=== PATIENT | male | born 1965 | race Caucasian/White ===

== ENCOUNTER 2022-02-10 09:24 | Emergency (ER) | payer BC ==
[~2022-02-10] VITALS: Ht 170.2 cm; Wt 120.5 kg
[2022-02-10 09:30] VITALS: TEMP 98.6
[2022-02-10 11:06] VITALS: BP 133/82; PULSE 65
== END 2022-02-10 11:10 | disposition home or self-care (01) ==
LOC: COL.ER 09:24
DX: S51.812A Laceration without foreign body of left forearm, initial encounter (principal); Z28.310 Unvaccinated for COVID-19; W01.198A Fall on same level from slipping, tripping and stumbling with subsequent striking against other object, initial encounter; W26.8XXA Contact with other sharp object(s), not elsewhere classified, initial encounter; Y92.096 Garden or yard of other non-institutional residence as the place of occurrence of the external cause